=== PATIENT | male | born 1955 | race Caucasian/White ===

== ENCOUNTER 2017-01-22 14:58 | Emergency (ER) | payer BC ==
--- NOTE | ~2017-01-22 | EKG ---
PATIENT: LAZARO ALATORRE UNIT #: [id number] Ventricular Rate: 70 BPM Atrial Rate: 70 BPM P-R Interval: 152 ms QRS Duration: 92 ms Q-T Interval: 386 ms QTC Calculation(Bezet): 416 ms P Mims: 58 degrees Calculated R Mims: 19 degrees Calculated T Mims: 10 degrees Diagnosis Line: Normal sinus rhythm with sinus arrhythmia Diagnosis Line: Normal ECG Diagnosis Line: When compared with ECG of 26-JUN-2012 11:54, Diagnosis Line: Premature ventricular complexes are no longer Diagnosis Line: Present Diagnosis Line: Confirmed by DAISY QURESHI MD ([id number]) on 01/22/2017 Diagnosis Line: 10:59:49 PM INTERPRETING MD: TITUS MCGINNIS
--- NOTE | ~2017-01-22 | MR17 ---
[facility] A Service of [facility] & [facility] RADIOLOGY TEXT RESULTS PATIENT: LAZARO ALATORRE LOCATION: [facility] : 57 UNIT #: [id number] AGE: [address]: Derrick Mullen MD SEX: M ORDER DR: [id number] [facility] [address] [place], [place] [address] [id number] MR#: [id number] Acc #: [id number] NAME: LAZARO ALATORRE. : 1955 SEX: M STUDY DATE/TIME: 01/22/2017 16:39 UNIT: [facility] ROOM: STUDY DESCRIPTION: MR Brain WWo Contrast Attending Physician: Derrick Mullen M.D. Ordering Physician: Adelso Rivera M.D. Primary Care Physician: Yaz Barron M.D. MRI CENTER REPORT This report is preliminary unless electronic signature is present. EXAM MRI brain without and with IV gadolinium. HISTORY Facial numbness and left shoulder numbness for 1.5 weeks. FINDINGS MRI brain was performed without and with IV gadolinium. There is no evidence of recent ischemia or infarct. No intracranial mass or edema. No abnormal enhancement. Mild chronic ischemic changes in the deep white matter bilaterally. No abnormal enhancement with gadolinium. IMPRESSION 1. No acute findings. 2. No recent ischemia or infarct. 3. Mild chronic ischemic changes in the deep white matter bilaterally. 4. No intracranial mass or edema or abnormal enhancement. Dictated by... Omari Perez M.D. THIS IS AN ELECTRONICALLY VERIFIED REPORT Omari Perez M.D. at 01/22/2017 10:59 PM KHALIDA/caro TD: 01/22/2017 21:30 JOB #: [id number] MRI CENTER REPORT Page 1 of 1 COPY
[2017-01-22 13:28] LABS: BASOPHIL# 0.1 X10e3 (0-0.3); EOSINOPHIL# 0.1 X10e3 (0-0.7); EOSINOPHIL% 1.7 % (0.0-7.0); LYMPHOCYTE# 1.9 X10e3 (1.0-3.5); LYMPHOCYTE% 26.1 % (17.0-45.0); MEAN CELL VOLUME 87.8 FL (83-96); MEAN CORPUSCULAR HGB CONC 34.2 g/dL (30-36); MEAN PLATELET VOLUME 8.3 FL (6.5-11.5); MONOCYTE# 0.8 X10e3 (0-1.0); MONOCYTE% 11.2 % (3.0-12.0); NEUTROPHIL# 4.3 X10e3 (1.5-7.1); PLATELET COUNT 136 X10e3 (140-420); RED BLOOD COUNT 5.01 X10e (3.90-5.60); RED CELL DISTRIBUTION WIDTH 12.9 % (11.0-15.5); WHITE BLOOD COUNT 7.2 X10e3 (4.0-10.5)
[2017-01-22 13:31] LABS: DIFF IND NO
[2017-01-22 13:51] LABS: ALBUMIN SERUM 4.4 g/dL (3.5-5.0); BILIRUBIN, DIRECT 0.1 mg/dL (0.0-0.2); BILIRUBIN,INDIRECT 0.7 mg/dL (0.0-0.9); BILIRUBIN,TOTAL 0.8 mg/dL (0.2-2.0); BUN/CREATININE RATIO 32.5; CALCIUM SERUM 9.5 mg/dL (8.4-10.2); CREATININE SERUM 0.8 mg/dL (0.6-1.4); GLOM FILT RATE Estimated 96.5 mL/min (>60); POTASSIUM 4.2 mmol/L (3.5-5.1)
[2017-01-22 14:46] LABS: URINE SOURCE CLEAN CATCH
[2017-01-22 14:50] LABS: URINE APPEARANCE CLEAR; URINE BILIRUBIN NEG (NEG); URINE BLOOD NEG (NEG); URINE COLOR YELLOW; URINE GLUCOSE >1000 MG/DL (NEG); URINE KETONE TRACE (NEG); URINE LEUKOCYTE ESTERASE NEG (NEG); URINE NITRATE NEG (NEG); URINE PROTEIN TRACE (NEG); URINE SPECIFIC GRAVITY 1.039 (1.003-1.035); URINE UROBILINOGEN 0.2 MG/DL (NEG)
[2017-01-22 14:58] LABS: CULTURE INDICATED? NO
[~2017-01-22 14:58] MED LIST: DESYREL50 M1 PO; METFORMIN HCL500 M1 PO
[2017-01-22 15:19] LABS: POC - CKMB 1.1 ng/mL (0.0-7.9); POC - TROPONIN <0.05 ng/mL (<=0.05)
== END 2017-01-22 18:19 | disposition home or self-care (01) ==
LOC: CED 14:58
PROVIDERS: Emergency Medicine
DX: R73.9 Hyperglycemia, unspecified (principal); R20.2 Paresthesia of skin
CPT/HCPCS: 36415; 70553; 80048; 80076; 81003; 82553; 82947; 83690; 84484; 85025; 93005; 96360; 99284; A9577

== ENCOUNTER → 2017-01-31 | Outpatient (CLI) | payer BC ==
--- NOTE | ~2017-01-31 | MR113 ---
[facility] A Service of [facility] & [facility] RADIOLOGY TEXT RESULTS PATIENT: LAZARO ALATORRE LOCATION: [facility] : 57 UNIT #: [id number] AGE: [address]: Nevin Myers APRN SEX: M ORDER DR: [id number] [facility] [address] [place], [place] [address] [id number] O MR#: [id number] Acc #: [id number] NAME: LAZARO ALATORRE : 1955 SEX: M STUDY DATE/TIME: 01/31/2017 9:22 UNIT: [facility] ROOM: STUDY DESCRIPTION: MR Lumbar Wo Contrast Attending Physician: Nevin Myers A.P.R.N. Referring Physician: Nevin Myers A.P.R.N. Ordering Physician: Nevin Myers A.P.R.N. Primary Care Physician: Yaz Barron M.D. MRI CENTER REPORT This report is preliminary unless electronic signature is present. EXAM MRI of the lumbar spine without HISTORY Bilateral leg weakness. No trauma or lumbar spine surgery. No history of cancer, low-back pain bilateral, posterior femoral pain for 7-10 days, hypertension, diabetes and hepatitis C. TECHNIQUE MRI of the lumbar spine performed without contrast using routine 1.5-T imaging technique. FINDINGS Sagittal alignment is normal. Mild disc desiccation L3-L4 through L5-S1 levels with mild associated loss of intervertebral disc height. Conus medullaris terminates at L1-2 and is normal. Bone marrow signal intensity is normal. 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 At L1-2, there is no focal disc protrusion or extrusion. There is mild bilateral facet hypertrophy. There is no canal stenosis but the foramina are developmentally small bilaterally. At L2-3, bilateral mild facet hypertrophy with minimal disc bulge to the right side posterolaterally. Mild effacement of the thecal sac. The foramina are developmentally small bilaterally. At L3-4, there is mild right and moderate left-side facet degenerative change with concentric disc bulge and a superimposed broad posterior STS. [facility] A Service of [facility] & [facility] RADIOLOGY TEXT RESULTS PATIENT: LAZARO ALATORRE LOCATION: [facility] : 57 UNIT #: [id number] AGE: [address]: Nevin Myers APRN SEX: M ORDER DR: protrusion extending into the bilateral foramina. Ligamentum flavum thickening is asymmetrically worse on the left. Combination of findings superimposed upon developmentally small canal results in [id number] central canal stenosis with mass effect on the left lateral recess. There is fairly severe left and more moderate right-side foraminal narrowing. Component of left posterolateral disc protrusion contributes to the left-sided foraminal narrowing. At L4-5, there is mild bilateral facet degenerative change and ligamentum flavum thickening. There is a broad-based posterior protrusion and the combination of findings result in severe canal stenosis. Disc material extends into the inferior foramina also and there is severe foraminal compromise. At L5-S1, mild broad-based post protrusion with a more focal left paramedian annular fissure. Mild mass effect on the anterior thecal sac and bilateral-lateral recesses. Zczw-[id number]-obiwlzlx sbhpl-jjrzwmb-wroa-left side foraminal narrowing. IMPRESSION 1. Multilevel lumbar degenerative changes superimposed upon a developmentally small canal such that there is multilevel canal stenosis and foraminal impingement. Canal stenosis is most severe at L4-5 and L3-4. Please refer to the [id number] description of findings and correlate with patient's symptoms. Dictated by... Precious Deal M.D. THIS IS AN ELECTRONICALLY VERIFIED REPORT Precious Deal M.D. at 02/01/2017 5:33 PM SAC/pcl TD: 01/31/2017 22:16 JOB #: [id number] MRI CENTER REPORT Page 1 of 1 COPY
== END | disposition home or self-care (01) ==
LOC: CMRI 08:42
DX: M54.10 Radiculopathy, site unspecified (principal); R29.898 Other symptoms and signs involving the musculoskeletal system; M47.816 Spondylosis without myelopathy or radiculopathy, lumbar region; M48.06 Spinal stenosis, lumbar region
CPT/HCPCS: 72148